=== PATIENT | female | born 1945 | race Hispanic/Latino ===

== ENCOUNTER → 2019-01-21 | Day surgery (SDC) | payer MEDICARE ==
[~2019-01-21] MED LIST: ALENDRONATE SOD70 MG PO; FENTANYL CITRATE/PF 100MCG/2 ML INJ ONE; GLIMEPIRIDE2 MG PO; MIDAZOLAM HCL 2 MG/2 ML VIAL ONE; MONTELUKAST SOD10 MG PO; OMEPRAZOLE40 MG PO; OR PHACO EYE KIT ONE; PREOP PHACO EYE KIT ONE; SIMVASTATIN20 MG PO; TYLENOL WITH C1 EACH PO; VASOTEC10 MG PO; VASOTEC5 MG PO
--- OUTSIDE RECORDS SUMMARY | 2019-01-21 10:06 | XMS REPORT | Clinical Summary ---
Author Author [facility] Organization [facility] Address Unknown Phone Unavailable Care Team Providers Care Admission Discharge Rn Name Role Phone Ravindra Kirk MD PCP Allergies No Known Allergies Medications End Date Status Medication Sig Dispensed Refills Start Date Active simvastatin (ZOCOR) 40 MG Take 40 mg by 0 tablet mouth nightly. Active enalapril (VASOTEC) 20 MG Take 20 mg by 0 tablet mouth daily. Active montelukast (SINGULAIR) Take 10 mg by 0 10 mg tablet mouth nightly. Active alendronate (FOSAMAX) 70 Take 70 mg by 0 MG tablet mouth every 7 days. Take in the morning with a full glass of water, on an empty stomach, and do not take anything else by mouth or lie down for the next 30 min. Active HYDROcodone-acetaminophen Take 1 tablet 0 (NORCO) 5-325 mg per by mouth tablet every 6 (six) hours as needed for moderate pain. Active ondansetron (ZOFRAN) 8 MG Take 8 mg by 0 tablet mouth every 8 (eight) hours as needed for nausea or vomiting. Active ketoconazole (NIZORAL) 2 APPLY 2 % shampoo TOPICALLY TO 7 SCALP 2 TO 3 TIMES PER WEEK Active glipiZIDE (GLUCOTROL) 5 Take 5 mg by 1 MG 24 hr tablet mouth daily. 8 Active citalopram (CeleXA) 20 MG TOME BELA 1 tablet TABLETA POR 8 V?A ORAL TODOS LOS D? Active sulfamethoxazole-trimetho Take 1 tablet 0 prim (BACTRIM DS) 800-160 by mouth 2 8 mg per tablet (two) times a day. Active sucralfate (CARAFATE) 1 TAKE 1 TABLET 4 gram tablet BY MOUTH 30 8 MINUTES BEFORE MEALS DIRECTED BY DOCTOR Active omeprazole (PriLOSEC) 40 TAKE 1 4 MG capsule CAPSULE BY 8 MOUTH EVERY DAY IN THE MORNING Active methadone (DOLOPHINE) 5 Take 5 mg by 0 MG tablet mouth 2 (two) 8 times a day. 01/27/2018 HYDROcodone-acetaminophen Take 1 tablet 30 tablet 0 (NORCO) 5-325 mg per by mouth 7 tablet every 6 (six) hours as needed for moderate pain for up to 330 days. Max Daily Amount: 4 tablets 03/29/2018 amoxicillin (AMOXIL) 500 Take 1 21 capsule 0 MG capsule capsule (500 8 mg total) by mouth 3 (three) times a day for 7 days. Active Problems Problem Noted Date Renal insufficiency 03/02/2017 Complicated urinary tract infection 03/01/2017 Ureteral stone with hydronephrosis 02/20/2017 Encounters Care Team Description Date Type Specialty Courtney Esparza MD Hyperkalemia (Primary Dx); Weakness 03/22/2018 Emergency Emergency Medicine after 01/20/2018 Social History Date Tobacco Use Types Packs/Day Years Used Never Smoker Smokeless Tobacco: Never Used Alcohol Use Drinks/Week oz/Week Comments No Sex Assigned at Date Recorded Not on file Industry Job Start Date Occupation Not on file Not on file Not on file Travel End Travel History Travel Start No recent travel history available. Last Filed Vital Signs Time Taken Vital Sign Reading 03/22/2018 7:21 PM CDT Blood Pressure 107/51 03/22/2018 7:21 PM CDT Pulse 72 03/22/2018 7:21 PM CDT Temperature 37.1 C (98.7 F) 03/22/2018 7:21 PM CDT Respiratory Rate 15 03/22/2018 7:21 PM CDT Oxygen Saturation 95% - Inhaled Oxygen - Concentration 03/22/2018 3:57 PM CDT Weight 63.5 kg (140 lb) - Height - 03/22/2018 3:57 PM CDT Body Mass Index 28.28 Plan of Treatment Health Maintenance Due Date Last Done Comments BREAST CANCER SCREENING 1995 COLON CANCER SCREENING 1995 SHINGLES VACCINES (#1) 1995 65+ PNEUMOCOCCAL VACCINE 2010 (1 of 2 - PCV13) PNEUMOCOCCAL 2010 POLYSACCHARIDE VACCINE AGE 65 AND OVER INFLUENZA VACCINE 04/17/2019 Implants Device Identifier Shelf Expiration Date Model / Serial / Lot Implanted Type Area Manufactur er 05/26/2020 [id number] / / [id number] Stent Uretl [employer] Inlay 6fr 24cm - Surgical N/A: N/A BARD [id number] Stents MEDICAL Implanted: Qty: 1 on 02/21/2017 by DIVISION Ashli Oneill MD Procedures Comments Procedure Name Priority Date/Time Associated Diagnosis XR CHEST 1 VW PORTABLE STAT 03/22/2018 5:48 PM CDT TROPONIN STAT 03/22/2018 4:47 PM CDT ZZESTIMATED GFR STAT 03/22/2018 4:47 PM CDT LIPASE LEVEL STAT 03/22/2018 4:47 PM CDT COMPREHENSIVE METABOLIC STAT 03/22/2018 PANEL 4:47 PM CDT HC COMPLETE BLD COUNT STAT 03/22/2018 W/AUTO DIFF 4:[address] HEAD WO CONTRAST STAT 03/22/2018 4:31 PM CDT ECG ED PRELIMINARY Routine 03/22/2018 INTERPRETATION 4:27 PM CDT ECG 12-LEAD STAT 03/22/2018 4:10 PM CDT URINALYSIS SCREEN AND STAT 03/22/2018 MICROSCOPY, WITH REFLEX 4:08 PM CDT TO CULTURE URINE CULTURE STAT 03/22/2018 4:08 PM CDT GRAM STAIN STAT 03/22/2018 4:08 PM CDT after 01/20/2018 Results * XR Chest 1 Vw Portable (03/22/2018 5:48 PM CDT) Narrative Performed At EXAMINATION:XR CHEST 1 VW PORTABLE [facility] CLINICAL HISTORY:Chest Pain COMPARISON:None. IMPRESSION: The lungs and pleural spaces are clear.The cardiomediastinal silhouette is within normal limits.There is no significant skeletal finding. [facility]-[id number] Procedure Note Hm Interface, Radiology Results Incoming - 03/22/2018 5:56 PM CDT EXAMINATION: XR CHEST 1 VW PORTABLE CLINICAL HISTORY: Chest Pain COMPARISON: None. IMPRESSION: The lungs and pleural spaces are clear. The cardiomediastinal silhouette is within normal limits. There is no significant skeletal finding. [facility]-[id number] Performing Organization Address City/State/Zipcode Phone Number [facility] [address] [place] [address] * Estimated GFR (03/22/2018 4:47 PM CDT) GFR Non Af Amer 40 (A) mL/min/1.73 m2 [facility] DEPARTMENT OF PATHOLOGY AND GENOMIC MEDICINE GFR Af Amer 49 (A) mL/min/1.73 m2 [facility] DEPARTMENT OF Comment: PATHOLOGY AND Chronic kidney disease: <60 GENOMIC MEDICINE mL/min/1.73m2 Kidney failure: <15 mL/min/1.73m2 The estimated GFR is calculated from the IDMS-traceable Modification of Diet in Renal Disease Equation. The accuracy of the calculation is poor when the creatinine is normal. Calculated values >90 mL/min/1.73m2 are not reported. This equation has not been validated in children (<18 years), women, the elderly (>70 years), or ethnic groups other than Caucasians and Americans. Specimen Plasma specimen Performing Organization Address [facility] Phone Number [facility] [address] [facility] [place] [address] PATHOLOGY AND [employer] MEDICINE * Troponin (03/22/2018 4:47 PM CDT) Troponin <0.30 0.00 - 0.30 ng/mL [facility] DEPARTMENT OF Comment: PATHOLOGY AND 0.11 - 1.49 GENOMIC MEDICINE ng/mlMay indicate increased risk of acute coronary syndrome. >=1.5 ng/ml Consistent with acute myocardial infarction. The diagnostic value of a single normal or non-diagnostic result is questionable.Serial samples at 2-6 hour intervals are required to rule out acute myocardial injury. Specimen Plasma specimen Performing Organization Address City/State/Zipcode Phone Number [facility] DEPARTMENT OF [address] [facility] [place] [address] PATHOLOGY AND GENOMIC MEDICINE * CBC with platelet and differential (03/22/2018 4:47 PM CDT) WBC 16.4 (H) 4.2 - 11.0 k/uL [facility] DEPARTMENT OF PATHOLOGY AND GENOMIC MEDICINE RBC 4.67 4.04 - 5.86 m/uL [facility] DEPARTMENT OF PATHOLOGY AND GENOMIC MEDICINE HGB 15.0 11.5 - 15.3 g/dL [facility] DEPARTMENT OF PATHOLOGY AND GENOMIC MEDICINE HCT 46.0 (H) 34.0 - 45.0 % [facility] DEPARTMENT OF PATHOLOGY AND GENOMIC MEDICINE MCV 98.5 (H) 80.0 - 98.0 fL [facility] DEPARTMENT OF PATHOLOGY AND GENOMIC MEDICINE MCH 32.1 27.0 - 34.0 pg [facility] DEPARTMENT OF PATHOLOGY AND GENOMIC MEDICINE MCHC 32.6 31.5 - 36.5 g/dL [facility] DEPARTMENT OF PATHOLOGY AND GENOMIC MEDICINE RDW - SD 49.5 37.0 - 51.0 fL [facility] DEPARTMENT OF PATHOLOGY AND GENOMIC MEDICINE MPV 10.8 (H) 7.4 - 10.4 fL [facility] DEPARTMENT OF PATHOLOGY AND GENOMIC MEDICINE Platelet count 306 150 - 400 k/uL [facility] DEPARTMENT OF PATHOLOGY AND GENOMIC MEDICINE Nucleated RBC 0.00 /100 WBC [facility] DEPARTMENT OF PATHOLOGY AND GENOMIC MEDICINE Neutrophils 77.4 (H) 36.0 - 66.0 % [facility] DEPARTMENT OF PATHOLOGY AND GENOMIC MEDICINE Lymphocytes 16.2 (L) 24.0 - 44.0 % [facility] DEPARTMENT OF PATHOLOGY AND GENOMIC MEDICINE Monocytes 5.3 0.0 - 6.0 % [facility] DEPARTMENT OF PATHOLOGY AND GENOMIC MEDICINE Eosinophils 0.0 0.0 - 6.0 % [facility] DEPARTMENT OF PATHOLOGY AND GENOMIC MEDICINE Basophils 0.3 0.0 - 1.2 % [facility] DEPARTMENT OF PATHOLOGY AND GENOMIC MEDICINE Immature granulocytes 0.8 0.0 - 1.0 % [facility] DEPARTMENT OF PATHOLOGY AND GENOMIC MEDICINE Specimen Blood Performing Organization Address City/[facility] [place] [address] PATHOLOGY AND GENOMIC MEDICINE * Lipase level (03/22/2018 4:47 PM CDT) Lipase 50 13 - 60 U/L [facility] DEPARTMENT OF PATHOLOGY AND GENOMIC MEDICINE Specimen Plasma specimen Performing Organization Address City/[facility] Phone Number [place] [phone] PATHOLOGY AND GENOMIC MEDICINE * Comprehensive metabolic panel (03/22/2018 4:47 PM CDT) Sodium 133 (L) 135 - 150 mEq/L [facility] DEPARTMENT OF PATHOLOGY AND GENOMIC MEDICINE Potassium 5.7 (H) 3.5 - 5.0 mEq/L [facility] DEPARTMENT OF PATHOLOGY AND GENOMIC MEDICINE Chloride 99 98 - 112 mEq/L [facility] DEPARTMENT OF PATHOLOGY AND GENOMIC MEDICINE CO2 25 24 - 31 mmol/L [facility] DEPARTMENT OF PATHOLOGY AND GENOMIC MEDICINE Anion gap 9@ANIO 7 - 15 mEq/L [facility] DEPARTMENT OF PATHOLOGY AND GENOMIC MEDICINE BUN 20 (H) 7 - 18 mg/dL [facility] DEPARTMENT OF PATHOLOGY AND GENOMIC MEDICINE Creatinine 1.30 (H) 0.50 - 0.90 mg/dL [facility] DEPARTMENT OF PATHOLOGY AND GENOMIC MEDICINE Glucose 91 65 - 100 mg/dL [facility] DEPARTMENT OF PATHOLOGY AND GENOMIC MEDICINE Calcium 11.3 (H) 8.8 - 10.2 mg/dL [facility] DEPARTMENT OF PATHOLOGY AND GENOMIC MEDICINE Protein 7.7 6.3 - 8.3 g/dL [facility] DEPARTMENT OF PATHOLOGY AND GENOMIC MEDICINE Albumin 3.7 3.5 - 5.0 g/dL [facility] DEPARTMENT OF PATHOLOGY AND GENOMIC MEDICINE A/G ratio 0.9 0.7 - 3.8 [facility] DEPARTMENT OF PATHOLOGY AND GENOMIC MEDICINE Alkaline phosphatase 65 0 - 104 U/L [facility] DEPARTMENT OF PATHOLOGY AND GENOMIC MEDICINE AST 43 (H) 10 - 35 U/L [facility] DEPARTMENT OF PATHOLOGY AND GENOMIC MEDICINE ALT 31 5 - 50 U/L [facility] DEPARTMENT OF PATHOLOGY AND GENOMIC MEDICINE Total bilirubin 0.3 0.2 - 1.2 mg/dL [facility] DEPARTMENT OF PATHOLOGY AND GENOMIC MEDICINE Specimen Plasma specimen Performing Organization Address City/State/Zipcode Phone Number [place] [address] [place] [address] PATHOLOGY AND GENOMIC MEDICINE * CT Head Wo Contrast (03/22/2018 4:31 PM CDT) Narrative Performed At EXAMINATION:CT HEAD WO CONTRAST [facility] COMPARISON:None CLINICAL HISTORY:dizziness COMMENTS:Axial noncontrast CT scan slices the head were obtained. CT imaging was performed with iterative reconstruction technique and/or automated exposure control to reduce radiation dose. FINDINGS:There is minimal mucosal thickening in the visualized sinuses. There is calcific atherosclerotic change in the arteries at the skull base. The bone windows do not show an acute skull fracture. There is mild involutional change in the brain. IMPRESSION:No acute intracranial hemorrhage or mass effect. [facility]-[id number] Procedure Note Hm Interface, Radiology Results Incoming - 03/22/2018 4:39 PM CDT EXAMINATION: CT HEAD WO CONTRAST COMPARISON: None CLINICAL HISTORY: dizziness COMMENTS: Axial noncontrast CT scan slices the head were obtained. CT imaging was performed with iterative reconstruction technique and/or automated exposure control to reduce radiation dose. FINDINGS: There is minimal mucosal thickening in the visualized sinuses. There is calcific atherosclerotic change in the arteries at the skull base. The bone windows do not show an acute skull fracture. There is mild involutional change in the brain. IMPRESSION: No acute intracranial hemorrhage or mass effect. [facility]-[id number] Performing Organization Address [facility] Phone Number [facility] [address] [place] [address] * ECG ED Preliminary Interpretation - NOT AN ORDER (03/22/2018 4:27 PM CDT) Narrative Performed At Courtney Esparza MD 03/22/20184:27 PM ECG ED Preliminary Interpretation - Not an Order Performed by: COURTNEY ESPARZA Authorized by: COURTNEY ESPARZA ECG reviewed by ED Physician in the absence of a news clipping cutter: yes Previous ECG: Previous ECG:Compared to current Interpretation: Interpretation: normal Rate: ECG rate:87 ECG rate assessment: normal Rhythm: Rhythm: sinus rhythm Ectopy: Ectopy: none QRS: QRS axis:Normal Conduction: Conduction: normal ST segments: ST segments:Normal T waves: T waves: normal * ECG 12 lead (03/22/2018 4:10 PM CDT) Ventricular rate 87 [facility] Atrial rate 87 [facility] UT interval 122 [facility] QRSD interval 72 [facility] QT interval 338 [facility] QTC interval 406 [facility] P axis 1 64 [facility] QRS axis 1 1 [facility] T wave axis 61 [facility] EKG impression Normal sinus rhythm with sinus [facility] MUSE arrhythmia-Low voltage QRS-Borderline ECG-No previous ECGs available- Performing Organization Address [facility] Phone Number [facility] MUSE [address] [place] [address] * Urinalysis screen and microscopy, with reflex to culture (03/22/2018 4:08 PM CDT) Specimen site Clean catch [facility] DEPARTMENT OF PATHOLOGY AND GENOMIC MEDICINE Color, UA Yellow [facility] DEPARTMENT OF PATHOLOGY AND GENOMIC MEDICINE Appearance, UA Clear [facility] DEPARTMENT OF PATHOLOGY AND GENOMIC MEDICINE Specific gravity, UA 1.013 1.001 - 1.035 [facility] DEPARTMENT OF PATHOLOGY AND GENOMIC MEDICINE pH, UA 7.0 5.0 - 8.5 [facility] DEPARTMENT OF PATHOLOGY AND GENOMIC MEDICINE Protein, UA Negative Negative [facility] DEPARTMENT OF PATHOLOGY AND GENOMIC MEDICINE Glucose, UA Negative Negative [facility] DEPARTMENT OF PATHOLOGY AND GENOMIC MEDICINE Ketones, UA Negative Negative [facility] DEPARTMENT OF PATHOLOGY AND GENOMIC MEDICINE Bilirubin, UA Negative Negative [facility] DEPARTMENT OF PATHOLOGY AND GENOMIC MEDICINE Blood, UA Negative Negative [facility] DEPARTMENT OF PATHOLOGY AND GENOMIC MEDICINE Nitrite, UA Negative Negative [facility] DEPARTMENT OF PATHOLOGY AND GENOMIC MEDICINE Urobilinogen, UA 2.0 (A) <2.0 [facility] DEPARTMENT OF PATHOLOGY AND GENOMIC MEDICINE Leukocyte esterase, UA Trace (A) Negative [facility] DEPARTMENT OF PATHOLOGY AND GENOMIC MEDICINE Epithelial cells, UA Many /HPF [facility] DEPARTMENT OF PATHOLOGY AND GENOMIC MEDICINE WBC, UA 4 0 - 5 /HPF [facility] DEPARTMENT OF PATHOLOGY AND GENOMIC MEDICINE RBC, UA 1 0 - 5 /HPF [facility] DEPARTMENT OF PATHOLOGY AND GENOMIC MEDICINE Bacteria, UA None seen None seen [facility] DEPARTMENT OF PATHOLOGY AND GENOMIC MEDICINE Yeast, UA None seen [facility] DEPARTMENT OF PATHOLOGY AND GENOMIC MEDICINE Yeast with pseudohyphae, None seen [facility] DEPARTMENT OF UA PATHOLOGY AND GENOMIC MEDICINE Hyaline casts, UA 2 /LPF [facility] DEPARTMENT OF PATHOLOGY AND GENOMIC MEDICINE Specimen Urine Performing Organization Address City/State/Zipcode Phone Number [facility] DEPARTMENT OF [address] [place] [address] PATHOLOGY AND GENOMIC MEDICINE * Gram stain (03/22/2018 4:08 PM CDT) Gram stain result Rare WBC's [facility] DEPARTMENT OF No organisms seen PATHOLOGY AND Comment: GENOMIC MEDICINE Specimen Information Specimen Source: Urine Specimen Site: Clean catch Specimen Urine Performing Organization Address City/State/Zipcode Phone Number [facility] DEPARTMENT OF [address] [place] [address] PATHOLOGY AND GENOMIC MEDICINE * Urine culture (03/22/2018 4:08 PM CDT) Urine culture isolate Gram negative rods [facility] DEPARTMENT OF <10-1 cfu/ml PATHOLOGY AND (A) GENOMIC MEDICINE Comment: Specimen Information Specimen Source: Urine Specimen Site: Clean catch Urine culture isolate Mixed Gram positive cierra [facility] DEPARTMENT OF 10-2 cfu/ml PATHOLOGY AND (A) GENOMIC MEDICINE Specimen Urine Performing Organization Address City/State/Zipcode Phone Number [facility] DEPARTMENT OF [address] [place] [address] PATHOLOGY AND GENOMIC MEDICINE after 01/20/2018 Insurance Payer Benefit Subscriber ID Type Phone Address Plan / Group MEDICAID MEDICAID xxxxxxxxx Medicaid UHC MEDICARE UHC DUAL xxxxxxxxx HMO COMPLETE MCR Advance Directives Patient has advance care planning documents, and code status on file. For more i nformation, please contact: Jermaine Frey [address] [place] [address] Date Inactivated Comments Code Status Date Activated 02/22/2017 7:54 PM Full Code 02/20/2017 6:14 AM Code Status decision reached by: Patient
[2019-01-21 12:40] VITALS: BP 141/69
== END | disposition home or self-care (01) ==
LOC: OR 09:55
PROVIDERS: ATTEND Ophthalmology
DX: H25.12 Age-related nuclear cataract, left eye (principal); I10 Essential (primary) hypertension; E78.5 Hyperlipidemia, unspecified; E11.9 Type 2 diabetes mellitus without complications; K21.9 Gastro-esophageal reflux disease without esophagitis; Z79.84 Long term (current) use of oral hypoglycemic drugs; Z87.891 Personal history of nicotine dependence
CPT/HCPCS: 36415; 66984; 82948; J2250; V2632

== ENCOUNTER → 2019-02-04 | Day surgery (SDC) | payer MEDICARE ==
[~2019-02-04] MED LIST changes: -FENTANYL CITRATE/PF 100MCG/2 ML INJ ONE
--- OUTSIDE RECORDS SUMMARY | 2019-02-04 12:41 | XMS REPORT | Clinical Summary ---
Author Author [facility] Organization [facility] [facility] Address Unknown Phone Unavailable Care Team Providers Care Grocery Department Manager Name Role Phone Ravindra Kirk MD PCP [...] Active omeprazole (PriLOSEC) 40 TAKE 1 4 03/19/201 MG capsule CAPSULE BY 8 MOUTH EVERY DAY IN THE MORNING Active methadone (DOLOPHINE) 5 Take 5 mg by 0 02/28/201 MG tablet mouth 2 (two) 8 times a day. 03/29/2018 amoxicillin (AMOXIL) 500 Take 1 21 capsule 0 MG capsule capsule (500 8 mg total) by mouth 3 (three) times a day for 7 days. Active Problems Problem Noted Date Renal insufficiency 03/02/2017 Complicated urinary tract infection 03/01/2017 Ureteral stone with hydronephrosis 02/20/2017 Encounters Care Team Description Date Type Specialty Courtney Esparza MD Hyperkalemia (Primary Dx); Weakness 03/22/2018 Emergency Emergency Medicine after 02/03/2018 Social History Date Tobacco Use Types Packs/Day [...] 63.5 kg (140 lb) - Height - 03/01/2017 11:37 PM CDT Body Mass Index 28.28 Plan [...] Lot Implanted Type Area Manufactur er 05/26/2020 [id number] / / [id number] Stent [employer] [place] In[place] 6fr 24cm - Surgical N/A: N/A [place] [id number] Stents MEDICAL Implanted: Qty: 1 on 02/21/2017 [...] STAIN STAT 03/22/2018 4:08 PM CDT after 02/03/2018 Results * XR Chest 1 Vw Portable (03/22/2018 5:48 PM CDT) Specimen Narrative Performed At EXAMINATION:XR CHEST 1 VW PORTABLE RADIANT CLINICAL HISTORY:Chest Pain COMPARISON:None. IMPRESSION: The lungs and pleural spaces are clear.The cardiomediastinal silhouette is within normal limits.There is no significant skeletal finding. [facility]-[id number] Procedure Note Interface, Radiology Results Incoming - 03/22/2018 5:56 PM CDT EXAMINATION: XR CHEST 1 VW PORTABLE CLINICAL HISTORY: Chest Pain COMPARISON: None. IMPRESSION: The lungs and pleural spaces are clear. The cardiomediastinal silhouette is within normal limits. There is no significant skeletal finding. [facility]-[id number] Performing Organization Address City/State/Zipcode Phone Number [address] [place] [address] * Estimated GFR (03/22/2018 4:47 PM CDT) [facility] GFR Non Af Amer 40 (A) mL/min/1.73 m2 [facility] OF PATHOLOGY AND GENOMIC MEDICINE GFR Af Amer 49 (A) mL/min/1.73 m2 [facility] Comment: OF PATHOLOGY Chronic kidney disease: <60 AND GENOMIC mL/min/1.73m2 MEDICINE Kidney failure: <15 mL/min/1.73m2 The estimated GFR [...] Americans. Specimen Plasma specimen Performing Organization Address [facility]/Zipcode Phone Number [address] [place] [address] PATHOLOGY AND [facility] * Troponin (03/22/2018 4:47 PM CDT) [facility] Troponin <0.30 0.00 - 0.30 ng/mL [facility] Comment: OF PATHOLOGY 0.11 - 1.49 AND GENOMIC ng/mlGay MEDICINE indicate increased risk of acute coronary syndrome. >=1.5 ng/ml Consistent with acute myocardial infarction. The diagnostic value of a single normal or non-diagnostic result is questionable.Serial samples at 2-6 hour intervals are required to rule out acute myocardial injury. Specimen Plasma specimen Performing Organization Address City/State/Zipcode Phone Number [facility] OF [address] [address] PATHOLOGY AND [facility] * CBC with platelet and differential (03/22/2018 4:47 PM CDT) [facility] WBC 16.4 (H) 4.2 - 11.0 k/uL [facility] OF PATHOLOGY AND GENOMIC MEDICINE RBC 4.67 4.04 - 5.86 m/uL [facility] OF PATHOLOGY AND GENOMIC MEDICINE HGB 15.0 11.5 - 15.3 g/dL [facility] OF PATHOLOGY AND GENOMIC MEDICINE HCT 46.0 (H) 34.0 - 45.0 % [facility] OF PATHOLOGY AND GENOMIC MEDICINE MCV 98.5 (H) 80.0 - 98.0 fL [facility] OF PATHOLOGY AND GENOMIC MEDICINE MCH 32.1 27.0 - 34.0 pg [facility] OF PATHOLOGY AND GENOMIC MEDICINE MCHC 32.6 31.5 - 36.5 g/dL [facility] OF PATHOLOGY AND GENOMIC MEDICINE RDW - SD 49.5 37.0 - 51.0 fL [facility] OF PATHOLOGY AND GENOMIC MEDICINE MPV 10.8 (H) 7.4 - 10.4 fL [facility] OF PATHOLOGY AND GENOMIC MEDICINE Platelet count 306 150 - 400 k/uL [facility] OF PATHOLOGY AND GENOMIC MEDICINE Nucleated RBC 0.00 /100 WBC [facility] OF PATHOLOGY AND GENOMIC MEDICINE Neutrophils 77.4 (H) 36.0 - 66.0 % [facility] OF PATHOLOGY AND GENOMIC MEDICINE Lymphocytes 16.2 (L) 24.0 - 44.0 % [facility] OF PATHOLOGY AND GENOMIC MEDICINE Monocytes 5.3 0.0 - 6.0 % [facility] OF PATHOLOGY AND GENOMIC MEDICINE Eosinophils 0.0 0.0 - 6.0 % [facility] OF PATHOLOGY AND GENOMIC MEDICINE Basophils 0.3 0.0 - 1.2 % [facility] OF PATHOLOGY AND GENOMIC MEDICINE Immature 0.8 0.0 - 1.0 % [facility] granulocytes OF PATHOLOGY AND GENOMIC MEDICINE Specimen Blood Performing Organization Address City/[facility]/[place] [address] PATHOLOGY AND GENOMIC MEDICINE * Lipase level (03/22/2018 4:47 PM CDT) Lipase 50 13 - 60 U/L [facility] PATHOLOGY AND GENOMIC MEDICINE Specimen Plasma specimen Performing Organization Address City/[facility]/[place] [address] PATHOLOGY AND [facility] * Comprehensive metabolic panel (03/22/2018 4:47 PM CDT) Sodium 133 (L) 135 - 150 mEq/L [facility] OF PATHOLOGY AND GENOMIC MEDICINE Potassium 5.7 (H) 3.5 - 5.0 mEq/L [facility] OF PATHOLOGY AND GENOMIC MEDICINE Chloride 99 98 - 112 mEq/L [facility] OF PATHOLOGY AND GENOMIC MEDICINE CO2 25 24 - 31 mmol/L [facility] OF PATHOLOGY AND GENOMIC MEDICINE Anion gap 9@ANIO 7 - 15 mEq/L [facility] OF PATHOLOGY AND GENOMIC MEDICINE BUN 20 (H) 7 - 18 mg/dL [facility] OF PATHOLOGY AND GENOMIC MEDICINE Creatinine 1.30 (H) 0.50 - 0.90 mg/dL [facility] OF PATHOLOGY AND GENOMIC MEDICINE Glucose 91 65 - 100 mg/dL [facility] OF PATHOLOGY AND GENOMIC MEDICINE Calcium 11.3 (H) 8.8 - 10.2 mg/dL [facility] OF PATHOLOGY AND GENOMIC MEDICINE Protein 7.7 6.3 - 8.3 g/dL [facility] OF PATHOLOGY AND GENOMIC MEDICINE Albumin 3.7 3.5 - 5.0 g/dL [facility] OF PATHOLOGY AND GENOMIC MEDICINE A/G ratio 0.9 0.7 - 3.8 [facility] OF PATHOLOGY AND GENOMIC MEDICINE Alkaline 65 0 - 104 U/L [facility] phosphatase OF PATHOLOGY AND GENOMIC MEDICINE AST 43 (H) 10 - 35 U/L [facility] OF PATHOLOGY AND GENOMIC MEDICINE ALT 31 5 - 50 U/L [facility] OF PATHOLOGY AND GENOMIC MEDICINE Total bilirubin 0.3 0.2 - 1.2 mg/dL [facility] OF PATHOLOGY AND GENOMIC MEDICINE Specimen Plasma specimen Performing Organization Address City/State/Zipcode Phone Number [place] [phone] [place] [address] PATHOLOGY AND GENOMIC MEDICINE * CT Head Wo Contrast (03/22/2018 4:31 PM CDT) Specimen Narrative Performed At EXAMINATION:CT HEAD WO CONTRAST [...] IMPRESSION:No acute intracranial hemorrhage or mass effect. [facility]-[id number] Procedure Note Hm Interface, Radiology Results Incoming [...] No acute intracranial hemorrhage or mass effect. [facility]-[id number] Performing Organization Address [facility] Phone Number [facility] [address] [place] [address] * ECG ED Preliminary Interpretation - NOT AN ORDER (03/22/2018 4:27 PM CDT) Narrative Performed At Courtney Esparza MD 03/22/20184:27 PM ECG ED Preliminary Interpretation - Not an Order Performed by: COURTNEY ESPARZA Authorized by: COURTNEY ESPARZA ECG reviewed by ED Physician in the absence of a optical element coater: yes Previous ECG: Previous ECG:Compared to current Interpretation: Interpretation: normal Rate: ECG rate:87 ECG rate assessment: normal Rhythm: Rhythm: sinus rhythm Ectopy: Ectopy: none QRS: QRS axis:Normal Conduction: Conduction: normal ST segments: ST segments:Normal T waves: T waves: normal * ECG 12 lead (03/22/2018 4:10 PM CDT) Ventricular 87 [facility] rate Atrial rate 87 [facility] HI interval 122 [facility] QRSD interval 72 [facility] QT interval 338 [facility] QTC interval 406 [facility] P axis 1 64 [facility] QRS axis 1 1 [facility] T wave axis 61 [facility] EKG impression Normal sinus rhythm with sinus [facility] MUSE arrhythmia-Low voltage QRS-Borderline ECG-No previous ECGs available- Specimen Performing Organization Address [facility] Phone Number [facility] [address] [place] [address] * Urinalysis screen and microscopy, with reflex to culture (03/22/2018 4:08 PM CDT) Specimen site Clean catch [facility] OF PATHOLOGY AND GENOMIC MEDICINE Color, UA Yellow [facility] OF PATHOLOGY AND GENOMIC MEDICINE Appearance, UA Clear [facility] OF PATHOLOGY AND GENOMIC MEDICINE Specific 1.013 1.001 - 1.035 [facility] gravity, UA OF PATHOLOGY AND GENOMIC MEDICINE pH, UA 7.0 5.0 - 8.5 [facility] OF PATHOLOGY AND GENOMIC MEDICINE Protein, UA Negative Negative [facility] OF PATHOLOGY AND GENOMIC MEDICINE Glucose, UA Negative Negative [facility] OF PATHOLOGY AND GENOMIC MEDICINE Ketones, UA Negative Negative [facility] OF PATHOLOGY AND GENOMIC MEDICINE Bilirubin, UA Negative Negative [facility] OF PATHOLOGY AND GENOMIC MEDICINE Blood, UA Negative Negative [facility] OF PATHOLOGY AND GENOMIC MEDICINE Nitrite, UA Negative Negative [facility] OF PATHOLOGY AND GENOMIC MEDICINE Urobilinogen, 2.0 (A) <2.0 [facility] UA OF PATHOLOGY AND GENOMIC MEDICINE Leukocyte Trace (A) Negative [facility] esterase, UA OF PATHOLOGY AND GENOMIC MEDICINE Epithelial Many /HPF [facility] cells, UA OF PATHOLOGY AND GENOMIC MEDICINE WBC, UA 4 0 - 5 /HPF [facility] OF PATHOLOGY AND GENOMIC MEDICINE RBC, UA 1 0 - 5 /HPF [facility] OF PATHOLOGY AND GENOMIC MEDICINE Bacteria, UA None seen None seen [facility] OF PATHOLOGY AND GENOMIC MEDICINE Yeast, UA None seen [facility] OF PATHOLOGY AND GENOMIC MEDICINE Yeast with None seen [facility] pseudohyphae, OF PATHOLOGY UA AND GENOMIC MEDICINE Hyaline casts, 2 /LPF [facility] UA OF PATHOLOGY AND GENOMIC MEDICINE Specimen Urine Performing Organization Address City/State/Zipcode Phone Number [facility] OF [address] [place] [address] PATHOLOGY AND GENOMIC MEDICINE * Gram stain (03/22/2018 4:08 PM CDT) Gram stain Rare WBC's [facility] DE[facility] result No organisms seen OF PATHOLOGY Comment: AND GENOMIC Specimen Information MEDICINE Specimen Source: Urine Specimen Site: Clean catch Specimen Urine Performing Organization Address City/State/Zipcode Phone Number [facility] DEPARTMENT OF [address] [place] [address] PATHOLOGY AND GENOMIC MEDICINE * Urine culture (03/22/2018 4:08 PM CDT) Urine culture Gram negative rods [facility] DE[facility] isolate <10-1 cfu/ml OF PATHOLOGY (A) AND GENOMIC Comment: MEDICINE Specimen Information Specimen Source: Urine Specimen Site: Clean catch Urine culture Mixed Gram positive cierra [facility] DE[facility] isolate 10-2 cfu/ml OF PATHOLOGY (A) AND GENOMIC MEDICINE Specimen Urine Performing Organization Address City/State/Zipcode Phone Number [facility] DEPARTMENT OF [address] [place] [address] PATHOLOGY AND GENOMIC MEDICINE after 02/03/2018 Insurance Type Payer Benefit Subscriber ID Effective Phone Address Plan / Dates Group Medicaid MEDICAID MEDICAID xxxxxxxxx 2016-P resent [facility]MO [facility]IC[facility] DUAL xxxxxxxxx 2016-P COMPLETE resent [facility] Advance Directives Patient has advance care planning documents, and code status on file. For more i nformation, please contact: Jermaine Frey [address] [place] [address] Date Inactivated Comments Code Status Date Activated 02/22/2017 7:54 PM Full Code 02/20/2017 6:14 AM Code Status decision reached by: Patient
[2019-02-04 16:00] VITALS: BP 143/64
== END | disposition home or self-care (01) ==
LOC: OR 12:39
PROVIDERS: ATTEND Ophthalmology
DX: H25.11 Age-related nuclear cataract, right eye (principal); I10 Essential (primary) hypertension; E78.5 Hyperlipidemia, unspecified; E11.9 Type 2 diabetes mellitus without complications; K21.9 Gastro-esophageal reflux disease without esophagitis
CPT/HCPCS: 36415; 66984; 82948; J2250; V2632